=== PATIENT | female | born 1980 | race African-American/Black ===

== ENCOUNTER 2017-10-13 10:50 | Emergency (ER) | payer MEDICAID, OTHER ==
[2017-10-13] MEDS ORDERED: NAPROXEN 250 MG TABLET PO ONE (11:25)
[2017-10-13] MEDS ORDERED: HYDROCODONE/ACETAMINOPHEN 5-325 MG TABLET PO ONE (11:25)
--- NOTE | 2017-10-13 11:25 | ER Document Report ---
ED Headache - General Chief Complaint: Headache Stated Complaint: HEADACHE Time Seen by Provider: 10/13/17 11:22 Mode of Arrival: Ambulatory Information source: Patient, [facility] Records Notes: This 36-year-old female patient has history of migraines with hemiaplasia, hypertension, hyperlipidemia, coronary artery disease possibly, insulin- dependent diabetes. She reports 2 day history of severe headache with vomiting. She states her blood sugars have been okay. TRAVEL OUTSIDE OF THE [place] IN LAST 30 DAYS: No - Related Data Allergies/Adverse Reactions: No Known Allergies Allergy (Verified 10/13/17 10:52) Past Medical History - General Information source: Patient, [facility] Records - Social History Smoking Status: Never Smoker Cigarette use (# per day): No Chew tobacco use (# tins/day): No Smoking Education Provided: No Frequency of alcohol use: None Drug Abuse: None Lives with: Family Family History: Reviewed & Not Pertinent, Other - Mother had migraines Patient has suicidal ideation: No Patient has homicidal ideation: No - Past Medical History Cardiac Medical History: Reports: Hx Coronary Artery Disease, Hx Hypercholesterolemia, Hx Hypertension Pulmonary Medical History: Reports: Hx Asthma Neurological Medical History: Reports: Hx Cerebrovascular Accident Endocrine Medical History: Reports: Hx Diabetes Mellitus Type 1 Renal/ Medical History: Reports: None GI Medical History: Reports: None Musculoskeltal Medical History: Reports None Skin Medical History: Reports Hx Eczema Psychiatric Medical History: Reports: None Past Surgical History: Reports: Hx Oral Surgery - Immunizations Immunizations up to date: Yes Hx Diphtheria, Pertussis, Tetanus Vaccination: Yes - 2010 Hx Pneumococcal Vaccination: 10/12/00 Review of Systems - Review of Systems Constitutional: No symptoms reported EENT: No symptoms reported Cardiovascular: No symptoms reported Respiratory: No symptoms reported Gastrointestinal: See HPI, Vomiting - Vomiting related to the headache Genitourinary: No symptoms reported Female Genitourinary: No symptoms reported Musculoskeletal: No symptoms reported Skin: Other - Does have some eczema Hematologic/Lymphatic: No symptoms reported Neurological/Psychological: Headaches Physical Exam - Vital signs Vitals: Temp Pulse Resp BP Pulse Ox 98.6 F 106 H 16 143/93 H 98 10/13/17 10:56 10/13/17 10:56 10/13/17 10:56 10/13/17 10:56 10/13/17 10:56 Interpretation: Normal - HEENT Head: Normocephalic, Atraumatic, Tenderness - Some tenderness to palpate the frontal and temporal scalp Eyes: Normal Pupils: PERRL Neck: Supple, Other - There is minimal tenderness to palpate the posterior cervical muscles - Respiratory Respiratory status: No respiratory distress Breath sounds: Normal - Cardiovascular Rhythm: Regular Heart sounds: Normal auscultation Murmur: No - Abdominal Inspection: Normal - Back Back: Normal - Extremities General upper extremity: Normal inspection General lower extremity: Normal inspection - Neurological Neuro grossly intact: Yes - Psychological Associated symptoms: Normal affect, Normal mood Course - Re-evaluation Re-evalutation: 10/13/17 12:37 Patient is much more comfortable now reports her headache has eased off. She will be given a prescription for Compazine and instructions about taking Benadryl, Compazine, and 2 Aleve with large glass of water and perhaps some caffeine next time she gets a headache like this. - Vital Signs Vital signs: Temp Pulse Resp BP Pulse Ox 98.6 F 106 H 16 143/93 H 98 10/13/17 10:56 10/13/17 10:56 10/13/17 10:56 10/13/17 10:56 10/13/17 10:56 Discharge - Discharge Clinical Impression: Migraine headache Qualifiers: Migraine type: unspecified Status migrainosus presence: with status migrainosus Intractability: not intractable Qualified Code(s): G43.901 - Migraine, unspecified, not intractable, with status migrainosus Condition: Stable Disposition: HOME, SELF-CARE Additional Instructions: Migraine Headache: The physician feels that your symptoms are due to a migraine attack. Migraines are caused by changes in the blood vessels of the head. Arteries go into spasm, often causing warning symptoms that a headache may begin soon. As the spasm goes away, the vessels dilate and throb, causing the pounding pain of a migraine headache. Migraines often cause nausea and vomiting. The treatment of headaches varies with severity and cause of pain. Not all headaches need pain shots -- in fact, there is evidence that using narcotics for headaches may make them worse in the long run. The physician will determine the therapy that's in your best interest for this particular headache. Medications are available that may prevent migraines, or stop them as they first occur. If one medication is not helpful, try another. If migraines are frequent, be patient -- follow the doctor's recommendations. Call the physician if you are worsening, or if new symptoms arise. //////////////////////////////////////////////////////////////////////////////// //////////////////////////////////////////////////////////// Drink plenty of fluids today and get plenty of rest. Take the Compazine as prescribed if needed for headache along with 1 or 2 Benadryl tablets, 2 Aleve tablets and some caffeine perhaps from a cup of coffee or soda or tea to treat the headache if it returns. Follow-up with local medical doctor if not improving. RETURN TO THE EMERGENCY ROOM IF ANY NEW OR WORSENING SYMPTOMS. Prescriptions: Prochlorperazine Maleate [Compazine 10 mg Tablet] 10 mg PO ASDIR PRN #10 tablet PRN Reason:
[2017-10-13 13:06] VITALS: BP 136/87
== END 2017-10-13 13:09 | disposition home or self-care (01) ==
LOC: ER 10:50
DX: G43.901 Migraine, unspecified, not intractable, with status migrainosus (principal); I10 Essential (primary) hypertension; I25.10 Atherosclerotic heart disease of native coronary artery without angina pectoris; E78.00 Pure hypercholesterolemia, unspecified; E10.9 Type 1 diabetes mellitus without complications; Z86.73 Personal history of transient ischemic attack (TIA), and cerebral infarction without residual deficits; Z79.4 Long term (current) use of insulin
CPT/HCPCS: 99283; J3490

== ENCOUNTER 2017-10-15 13:56 | Emergency (ER) | payer MEDICAID ==
--- NOTE | 2017-10-15 14:26 | ER Document Report ---
ED Medical Screen (RME) - General Chief Complaint: Headache >24 hrs old Stated Complaint: HEADACHE Time Seen by Provider: 10/15/17 14:21 TRAVEL OUTSIDE OF THE [place] IN LAST 30 DAYS: No - HPI Patient complains to provider of: Headache 10/10 Notes: 10/15/17 14:24 Fortunately young woman with history of stroke presents with 10/10 headache. She had a migraine that started 2 days ago was seen in our emergency department. Was given medications here and released improved. Returns again with headache throbbing in nature nausea vomiting no diarrhea no head trauma. No focal motor defects. - Related Data Allergies/Adverse Reactions: No Known Allergies Allergy (Verified 10/15/17 13:59) Past Medical History - Past Medical History Cardiac Medical History: Reports: Hx Coronary Artery Disease, Hx Hypercholesterolemia, Hx Hypertension Pulmonary Medical History: Reports: Hx Asthma Neurological Medical History: Reports: Hx Cerebrovascular Accident Endocrine Medical History: Reports: Hx Diabetes Mellitus Type 1 Renal/ Medical History: Denies: Hx Peritoneal Dialysis Skin Medical History: Reports Hx Eczema Past Surgical History: Reports: Hx Oral Surgery. Denies: Hx Hysterectomy - Immunizations Immunizations up to date: Yes Hx Diphtheria, Pertussis, Tetanus Vaccination: Yes - 2010 Review of Systems - Review of Systems Gastrointestinal: Nausea, Vomiting Neurological/Psychological: Headaches Physical Exam - Vital signs Vitals: Temp Pulse Resp BP Pulse Ox 99.1 F 106 H 14 156/99 H 100 10/15/17 13:58 10/15/17 13:58 10/15/17 13:58 10/15/17 13:58 10/15/17 13:58 Course - Re-evaluation Re-evalutation: 10/15/17 14:26 Patient with history of stroke presents with 10/10 headache, nausea vomiting. - Vital Signs Vital signs: Temp Pulse Resp BP Pulse Ox 99.1 F 106 H 14 156/99 H 100 10/15/17 13:58 10/15/17 13:58 10/15/17 13:58 10/15/17 13:58 10/15/17 13:58
[2017-10-15] MEDS ORDERED: NORMAL SALINE 1000 ML 1,000 ML IV ONE ×2 (14:29→16:59)
[2017-10-15] MEDS ORDERED: METOCLOPRAMIDE HCL INJ/PF 10 MG/2 ML SDV IV ONE (15:27)
[2017-10-15] MEDS ORDERED: DIPHENHYDRAMINE HCL 50 MG/ML VIAL IV ONE (15:27)
[2017-10-15 15:43] LABS: INTERNATIONAL RATION (INR) 0.89; PROTHROMBIN TIME 12.7 SEC (11.4-15.4)
[2017-10-15 15:44] LABS: PARTIAL THROMBOPLASTIN TIME 33.2 SEC (23.5-35.8)
[2017-10-15 15:46] LABS: ABSOLUTE LYMPHOCYTES (AUTO) 1.8 10^3/uL (0.5-4.7); ABSOLUTE MONOCYTES (AUTO) 0.4 10^3/uL (0.1-1.4); ABSOLUTE NEUT (AUTO) 9.7 10^3/uL (1.7-8.2); BASOPHILS % (AUTO) 0.4 % (0-2); EOSINOPHILS % (AUTO) 0.2 % (0-6); HEMATOCRIT 43.9 % (36.0-47.0); HEMOGLOBIN 14.6 g/dL (12.0-15.5); LYMPHOCYTES % (AUTO) 14.9 % (13-45); MEAN CORPUSCULAR HEMOGLOBIN 28.7 pg (27.0-33.4); MEAN CORPUSCULAR HGB CONC 33.2 g/dL (32.0-36.0); MEAN CORPUSCULAR VOLUME 87 fl (80-97); MONOCYTES % (AUTO) 3.1 % (3-13); PLATELET COUNT 412 10^3/uL (150-450); RED BLOOD COUNT 5.08 10^6/uL (3.72-5.28); RED CELL DISTRIBUTION WIDTH 13.4 % (11.5-14.0); SEGMENTED NEUTROPHILS % (AUTO) 81.4 % (42-78); TOTAL CELLS COUNTED % (AUTO) 100 %; WHITE BLOOD COUNT 11.9 10^3/uL (4.0-10.5)
--- NOTE | 2017-10-15 16:02 | RADIOLOGY REPORT (SQ) ---
EXAM DESCRIPTION: CT HEAD WITHOUT COMPLETED DATE/TIME: 10/15/2017 3:44 pm REASON FOR STUDY: ARZOLA COMPARISON: Prior studies from 2016 and 2014. Most recent prior is dated 08/31/2016. TECHNIQUE: Axial images acquired through the brain without intravenous contrast. Images reviewed wi th bone, brain and subdural windows. Images stored on PACS. All CT scanners at this facility use dose modulation, iterative reconstruction, and/or weight based d osing when appropriate to reduce radiation dose to as low as reasonably achievable (ALARA). [facility]: Dose Right [facility]: CareDose [facility]: Dose Right [facility]: Teradose 4D [facility]: Smart FUZE Fit For A Kid! RADIATION DOSE: CT Rad equipment meets quality standard of care and radiation dose reduction techniq ues were employed. CTDIvol: 67.0 mGy. DLP: 1316 mGy-cm. mGy. LIMITATIONS: None. FINDINGS: VENTRICLES: Normal size and contour. CEREBRUM: Stable patchy areas of periventricular low density. Nonprogressive over time. No developin g mass or hemorrhage or shift or hydrocephalus. CEREBELLUM: No masses. No hemorrhage. No alteration of density. No evidence for acute infarction. EXTRAAXIAL SPACES: No fluid collections. No masses. ORBITS AND GLOBE: No intra- or extraconal masses. Normal contour of globe without masses. CALVARIUM: No fracture. PARANASAL SINUSES: No fluid or mucosal thickening. SOFT TISSUES: No mass or hematoma. OTHER: No other significant finding. IMPRESSION: 1. Nonprogressive white matter changes, chronic. No acute or suspicious abnormality. S table appearance of the brain. EVIDENCE OF ACUTE STROKE: NO. COMMENT: Quality ID # [id number]: Final reports with documentation of one or more dose reduction techniques (e.g., Automated exposure control, adjustment of the mA and/or kV according to patient size, use of iterative reconstruction technique) TECHNICAL DOCUMENTATION: JOB ID: [id number] [employer]- All Rights Reserved
--- NOTE | 2017-10-15 16:02 | RADIOLOGY REPORT (SQ) ---
EXAM DESCRIPTION: CHEST SINGLE VIEW COMPLETED DATE/TIME: 10/15/2017 3:48 pm REASON FOR STUDY: ARZOLA, hx stroke COMPARISON: 09/08/2015 EXAM PARAMETERS: NUMBER OF VIEWS: One view. TECHNIQUE: Single frontal radiographic view of the chest acquired. RADIATION DOSE: NA LIMITATIONS: None. FINDINGS: LUNGS AND PLEURA: No opacities, masses or pneumothorax. No pleural effusion. MEDIASTINUM AND HILAR STRUCTURES: No masses. Contour normal. HEART AND VASCULAR STRUCTURES: Heart normal in size. Normal vasculature. BONES: No acute findings. HARDWARE: None in the chest. OTHER: No other significant finding. IMPRESSION: NO ACUTE RADIOGRAPHIC FINDING IN THE CHEST. TECHNICAL DOCUMENTATION: JOB ID: [id number] [employer]- All Rights Reserved
--- NOTE | 2017-10-15 16:49 | ER Document Report ---
ED Headache - General Mode of Arrival: Ambulatory Information source: Patient TRAVEL OUTSIDE OF THE [place] IN LAST 30 DAYS: No - HPI Patient complains to provider of: Headache Patient reports: Occasional migraines, Prior CVA Onset: This afternoon Onset was: Gradual Timing: Still present Quality of pain: Sharp, Throbbing Pain Level: 5 Associated symptoms: Nausea/vomiting. denies: Confusion, Double/blurred vision , Fever, Lightheaded, Neck pain, Stiff neck, Trouble walking Exacerbated by: denies: Light, Noise Similar symptoms previously: Yes Recently seen / treated by doctor: Yes <MADELEINE WHITE - Last Filed: 10/15/17 19:24> <GUSTAVO BARRERA - Last Filed: 10/15/17 20:35> - General Chief Complaint: Headache >24 hrs old Stated Complaint: HEADACHE Time Seen by Provider: 10/15/17 14:21 Notes: Patient complains of right-sided headache pain that started 2 days ago. Patient was seen here for this at that time and received pain medication. Patient states that headache pain resolved and then returned this afternoon. Patient does report nausea with vomiting 4 episodes today. Patient denies any fever or head injury. Patient's mother is concerned that patient has a history of stroke in the past and that with her previous strokes 4 she always had headache pain. Mother states that patient has been followed by multiple providers at [facility], [facility], [facility] as well as [facility]. Patient states that some people say she had strokes, mother states that other providers that she did not have strokes, patient's mother states that patient is currently being treated for MS, but she does not believe that patient has this. Mother states that patient's had chronic body pains as well as weakness due to her strokes in the past. 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 Lives with: Family Family History: Reviewed & Not Pertinent, Other - Mother had migraines Patient has suicidal ideation: No Patient has homicidal ideation: No - Past Medical History Cardiac Medical History: Reports: Hx Coronary Artery Disease, Hx Hypercholesterolemia, Hx Hypertension Pulmonary Medical History: Reports: Hx Asthma Neurological Medical History: Reports: Hx Cerebrovascular Accident, Hx Migraine Endocrine Medical History: Reports: Hx Diabetes Mellitus Type 1 Renal/ Medical History: Denies: Hx Peritoneal Dialysis Skin Medical History: Reports Hx Eczema Past Surgical History: Reports: Hx Oral Surgery. Denies: Hx Hysterectomy - Immunizations Immunizations up to date: Yes Hx Diphtheria, Pertussis, Tetanus Vaccination: Yes - 2010 Hx Pneumococcal Vaccination: 10/12/00 <CINDYMADELEINE Rg - Last Filed: 10/15/17 19:24> Review of Systems - Review of Systems Constitutional: No symptoms reported. denies: Fever, Recent illness EENT: No symptoms reported. denies: Blurred vision Cardiovascular: No symptoms reported. denies: Chest pain, Dizziness Respiratory: No symptoms reported Gastrointestinal: Nausea, Vomiting. denies: Abdominal pain Genitourinary: No symptoms reported Female Genitourinary: No symptoms reported Musculoskeletal: No symptoms reported. denies: Back pain, Neck pain Skin: No symptoms reported. denies: Rash Hematologic/Lymphatic: No symptoms reported Neurological/Psychological: Weakness - Chronic after having prior CVAs, Headaches. denies: Confusion, Lost consciousness <CINDY,JEREMIASJAVON - Last Filed: 10/15/17 19:24> Physical Exam - General General appearance: Alert In distress: Mild - HEENT Head: Normocephalic, Atraumatic. No: Racoon's eyes, Tenderness Eyes: Normal Conjunctiva: Normal Extraocular movements intact: Yes Eyelashes: Normal Pupils: PERRL Ears: Normal External canal: Normal Tympanic membrane: Normal Sinus: Normal Nasal: Normal Mouth/Lips: Normal Mucous membranes: Normal Pharynx: Normal. No: Erythema Neck: Normal, Supple. No: Lymphadenopathy, Meningismus - Respiratory Respiratory status: No respiratory distress Chest status: Nontender Breath sounds: Normal. No: Rales, Rhonchi, Stridor, Wheezing Chest palpation: Normal - Cardiovascular Rhythm: Regular Heart sounds: S1 appreciated, S2 appreciated Murmur: No - Abdominal Inspection: Normal - Back Back: Normal, Nontender. No: CVA tenderness - Extremities General upper extremity: Normal inspection, Normal strength General lower extremity: Normal inspection, Normal strength - Neurological Neuro grossly intact: Yes Cognition: Normal Orientation: AAOx4 Gaffney Coma Scale Eye Opening: Spontaneous Mikalea Coma Scale Verbal: Oriented Mikaela Coma Scale Motor: Obeys Commands Gaffney Coma Scale Total: 15 Speech: Normal. No: Dysarthria Cranial nerves: Normal. No: Facial palsy, Tongue deviation Cerebellar coordination: Normal, Heel-bardales, Rapid alt. movements Motor strength normal: LUE, RUE, LLE, RLE - Psychological Associated symptoms: Normal affect, Normal mood - Skin Skin Temperature: Warm Skin Moisture: Dry Skin Color: Normal <MADELEINE WHITE - Last Filed: 10/15/17 19:24> - Vital signs Vitals: Temp Pulse Resp BP Pulse Ox 99.1 F 106 H 14 156/99 H 100 10/15/17 13:58 10/15/17 13:58 10/15/17 13:58 10/15/17 13:58 10/15/17 13:58 Course - Laboratory Result Diagrams: 10/15/17 14:45 10/15/17 16:53 - Diagnostic Test Radiology reviewed: Reports reviewed <MADELEINE WHITE - Last Filed: 10/15/17 19:24> - Laboratory Result Diagrams: 10/15/17 14:45 10/15/17 16:53 <GUSTAVO BARRERA - Last Filed: 10/15/17 20:35> - Re-evaluation Re-evalutation: 10/15/17 17:[address] Dockery regarding patient presentation reviewed patient's CT report findings. Does not recommend any additional imaging given normal neurologic exam. Recommend outpatient follow-up with neurologist 10/15/17 18:05 Patient reports that headache pain is starting to improve. RN states that patient is now starting to develop a fever. Additional medications ordered. Discussed patient's hyperglycemia. Mother states that patient has not had any of her diabetic medications today. 10/15/17 18:26 Dr Dockery bedside for examination. No concern for meningitis at this time, no meningismus. Negative Kernig and Brudzinski. Agrees with plan for IV hydration as well as checking a urinalysis and flu test at this time. 10/15/17 18:30 10/15/17 19:24 Bedside report and handout given to Gustavo DREW (MADELEINE WHITE) 10/15/17 20:30 Patient alert, well-appearing, states she feels much better. She is asking for a single dose of something so she can go home and rest, she denies any significant headache, she denies any neck stiffness, she denies any current symptoms other than feeling tired. Blood glucose on the 300s, patient given hydration, she has insulin and ability to check and self treat at home, anion gap and bicarbonate are normal. Urine does not show infection, influenza negative, chest x-ray does not show pneumonia, no sore throat, soft abdomen, probably viral source of infection. No meningismus suggesting meningitis. No current symptoms suggesting meningitis. Patient states she will follow closely with her neurologist, discussed fever treatment, blood glucose treatment, headache treatment, and return precautions. Patient and mom state satisfaction and agreement. (GUSTAVO BARRERA) - Vital Signs Vital signs: Temp Pulse Resp BP Pulse Ox 100.4 F 107 H 18 128/78 H 96 10/15/17 20:13 10/15/17 20:13 10/15/17 20:13 10/15/17 20:13 10/15/17 20:13 - Laboratory Laboratory results interpreted by me: 10/15/17 10/15/17 10/15/17 14:45 16:53 18:50 WBC 11.9 H Seg Neutrophils % 81.4 H Absolute Neutrophils 9.7 H Sodium 135.7 L Glucose 343 H POC Glucose Creatine Kinase 28 L Urine Glucose (UA) >=500 H Urine Ketones 20 H 10/15/17 20:02 WBC Seg Neutrophils % Absolute Neutrophils Sodium Glucose POC Glucose 348 H Creatine Kinase Urine Glucose (UA) Urine Ketones Discharge <MADELEINE WHITE - Last Filed: 10/15/17 19:24> <GUSTAVO BARRERA - Last Filed: 10/15/17 20:35> - Discharge Clinical Impression: Hx of diabetes mellitus Headache Qualifiers: Headache type: unspecified Headache chronicity pattern: episodic headache Intractability: not intractable Qualified Code(s): R51 - Headache Fever Qualifiers: Fever type: unspecified Qualified Code(s): R50.9 - Fever, unspecified Instructions: Acetaminophen, Fever ([facility]), Headache ([facility]), Hyperglycemia ([facility]), Toradol Injection ([facility]), Viral Syndrome ([facility]) Additional Instructions: Return immediately for any new or worsening symptoms Followup with your primary care provider, call tomorrow to make a followup appointment Follow-up with your neurologist for further evaluation, call tomorrow for an appointment Stay well-hydrated Take your diabetic medications as prescribed Prescriptions: Butalb/Acetaminophen/Caffeine [Fioricet (50-325-40 mg) Tablet] 1 - 2 tab PO Q4H PRN #12 each PRN Reason: Naproxen [Naprosyn 250 Nmg Tablet] 1 tab PO BID #14 tablet Forms: Return to Work Referrals: KENNEY PEREIRA MD [Primary Care Provider] - Follow up tomorrow
[2017-10-15] MEDS ORDERED: DEXAMETHASONE SOD PHOS INJ 10 MG/1 ML VIAL IV ONE (16:56)
[2017-10-15] MEDS ORDERED: KETOROLAC TROMETHAMINE INJ/PF 30 MG/1 ML SDV IV ONE (16:56)
[2017-10-15 17:19] LABS: ALANINE AMINOTRANSFERASE 23 U/L (9-52); ALBUMIN 4.3 g/dL (3.5-5.0); ALKALINE PHOSPHATASE 116 U/L (38-126); ANION GAP 12 (5-19); ASPARTATE AMINO TRANSFERASE 19 U/L (14-36); BILIRUBIN,DIRECT 0.3 mg/dL (0.0-0.4); BILIRUBIN,TOTAL 0.4 mg/dL (0.2-1.3); BLOOD UREA NITROGEN 7 mg/dL (7-20); CALCIUM 10.1 mg/dL (8.4-10.2); CARBON DIOXIDE 25 mmol/L (22-30); CHLORIDE 99 mmol/L (98-107); CREATINE KINASE 28 U/L (30-135); GLUCOSE 343 mg/dL (75-110); POTASSIUM 4.3 mmol/L (3.6-5.0); SODIUM 135.7 mmol/L (137-145); TOTAL PROTEIN 7.1 g/dL (6.3-8.2)
[2017-10-15] MEDS ORDERED: INSULIN REG, HUMAN 100 UNIT/ML 3 ML VIAL (PYX) SUBCUT ONE (17:25)
[2017-10-15 17:35] LABS: CREATINE KINASE MB < 0.22 ng/mL (<4.55); TROPONIN I < 0.012 ng/mL
[2017-10-15] MEDS ORDERED: ACETAMINOPHEN 325 MG TABLET PO ONE (18:00)
[2017-10-15 19:22] LABS: A TYPE INFLUENZA AG NEGATIVE (NEGATIVE); B INFLUENZA AG NEGATIVE (NEGATIVE)
[2017-10-15 19:25] LABS: APPEARANCE,URINE SLIGHTLY-CLOUDY; BILIRUBIN,URINE NEGATIVE (NEGATIVE); COLOR,URINE YELLOW; GLUCOSE, URINE >=500 mg/dL (NEGATIVE); KETONES,URINE 20 mg/dL (NEGATIVE); LEUKOCYTE ESTERASE,URINE NEGATIVE (NEGATIVE); NITRITE,URINE NEGATIVE (NEGATIVE); PROTEIN,URINE NEGATIVE (NEGATIVE); URINE SPECIFIC GRAVITY 1.039; UROBILINOGEN,URINE NEGATIVE mg/dL (<2.0)
[2017-10-15] MEDS ORDERED: OXYCODONE HCL IR 5 MG TABLET PO ONE (20:31)
[2017-10-15] MEDS ORDERED: HYDROCODONE/ACETAMINOPHEN 5-325 MG (6 TAB/ER DISP) PO PRN (20:31)
[2017-10-15 20:53] VITALS: BP 122/69
--- NOTE | 2017-10-16 09:22 | EKG REPORT ---
SEVERITY:- BORDERLINE ECG - SINUS TACHYCARDIA BORDERLINE T ABNORMALITIES, INFERIOR LEADS : Confirmed by: Geoff Saba 16-Oct-2017 09:22:23
== END 2017-10-15 20:53 | disposition home or self-care (01) ==
LOC: ER 13:56
DX: R51 Headache (principal); E10.65 Type 1 diabetes mellitus with hyperglycemia; R50.9 Fever, unspecified; R11.2 Nausea with vomiting, unspecified; I25.10 Atherosclerotic heart disease of native coronary artery without angina pectoris; I10 Essential (primary) hypertension; I69.398 Other sequelae of cerebral infarction; R53.1 Weakness; G89.29 Other chronic pain; F17.200 Nicotine dependence, unspecified, uncomplicated; R53.83 Other fatigue
CPT/HCPCS: 93005; 99284; 96361; 96374; 96375; 36415; 82553; 82962; 82550; 85025; 85610; 85730; 80053; 81001; 84484; 87804; 71045; 70450; 93010; J3490 ×2; J1200; J1885; J2765; J1815; J7030; J1100

== ENCOUNTER → 2018-01-19 | Outpatient (CLI) | payer MEDICAID ==
[2018-01-20 07:43] LABS: HEPATITIS A AB IGM Negative (Negative); HEPATITIS B CORE AB IGM Negative (Negative); HEPATITS B SURFACE ANTIGEN Negative (Negative)
[2018-01-20 08:17] LABS: HEPATITIS C VIRUS ANTIBODY <0.1 s/co ratio (0.0-0.9); VARICELLA ZOSTER IGG AB >4000 index (Immune >165)
== END ==
LOC: OD 10:50
PROVIDERS: ATTEND Psychiatry & Neurology Neurology
DX: G35 Multiple sclerosis (principal); Z13.9 Encounter for screening, unspecified; Z79.899 Other long term (current) drug therapy
CPT/HCPCS: 36415; 80074; 86480; 86787

== ENCOUNTER 2018-02-04 21:46 | Emergency (ER) | payer MEDICAID ==
--- NOTE | 2018-02-04 22:10 | ER Document Report ---
ED Medical Screen (RME) - General Chief Complaint: Weakness Stated Complaint: WEAKNESS Time Seen by Provider: 02/04/18 22:02 Notes: Patient is a 37 year old female that comes to the ED for chief complaint of weakness in her left arm and leg. She also reports some numbness. She states that she actually fell in a store earlier because of the weakness. Symptoms started at 2 PM, 8 hours ago, patient states that she both has a diagnosis of multiple sclerosis and has had 4 strokes, follows with [facility]. Used to be on a blood thinner, not any longer, not currently being treated for multiple sclerosis because of insurance difficulty, also has type 1 diabetes. TRAVEL OUTSIDE OF THE [place] IN LAST 30 DAYS: No - Related Data Allergies/Adverse Reactions: No Known Allergies Allergy (Verified 10/15/17 13:59) Past Medical History - Past Medical History Cardiac Medical History: Reports: Hx Coronary Artery Disease, Hx Hypercholesterolemia, Hx Hypertension Pulmonary Medical History: Reports: Hx Asthma Neurological Medical History: Reports: Hx Cerebrovascular Accident, Hx Migraine Endocrine Medical History: Reports: Hx Diabetes Mellitus Type 1 Renal/ Medical History: Denies: Hx Peritoneal Dialysis Skin Medical History: Reports Hx Eczema Past Surgical History: Reports: Hx Oral Surgery. 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
[2018-02-04 22:59] LABS: ABSOLUTE EOSINOPHILS # (AUTO) 0.1 10^3/uL (0.0-0.6); ABSOLUTE LYMPHOCYTES (AUTO) 3.1 10^3/uL (0.5-4.7); ABSOLUTE MONOCYTES (AUTO) 0.6 10^3/uL (0.1-1.4); ABSOLUTE NEUT (AUTO) 8.2 10^3/uL (1.7-8.2); BASOPHILS % (AUTO) 0.2 % (0-2); EOSINOPHILS % (AUTO) 0.8 % (0-6); HEMATOCRIT 39.9 % (36.0-47.0); HEMOGLOBIN 13.3 g/dL (12.0-15.5); LYMPHOCYTES % (AUTO) 25.8 % (13-45); MEAN CORPUSCULAR HEMOGLOBIN 28.4 pg (27.0-33.4); MEAN CORPUSCULAR HGB CONC 33.3 g/dL (32.0-36.0); MEAN CORPUSCULAR VOLUME 85 fl (80-97); MONOCYTES % (AUTO) 5.3 % (3-13); PLATELET COUNT 346 10^3/uL (150-450); RED BLOOD COUNT 4.67 10^6/uL (3.72-5.28); RED CELL DISTRIBUTION WIDTH 13.7 % (11.5-14.0); SEGMENTED NEUTROPHILS % (AUTO) 67.9 % (42-78); TOTAL CELLS COUNTED % (AUTO) 100 %
[2018-02-04 23:07] LABS: INTERNATIONAL RATION (INR) 0.87; PROTHROMBIN TIME 12.3 SEC (11.4-15.4)
[2018-02-04 23:08] LABS: PARTIAL THROMBOPLASTIN TIME 34.9 SEC (23.5-35.8)
[2018-02-04 23:18] LABS: ALANINE AMINOTRANSFERASE 28 U/L (9-52); ALBUMIN 4.4 g/dL (3.5-5.0); ALKALINE PHOSPHATASE 88 U/L (38-126); ANION GAP 14 (5-19); ASPARTATE AMINO TRANSFERASE 23 U/L (14-36); BILIRUBIN,DIRECT 0.3 mg/dL (0.0-0.4); BILIRUBIN,TOTAL 0.3 mg/dL (0.2-1.3); BLOOD UREA NITROGEN 5 mg/dL (7-20); CALCIUM 10.2 mg/dL (8.4-10.2); CARBON DIOXIDE 24 mmol/L (22-30); CHLORIDE 94 mmol/L (98-107); CREATINE KINASE 24 U/L (30-135); POTASSIUM 4.2 mmol/L (3.6-5.0); SODIUM 132.2 mmol/L (137-145); TOTAL PROTEIN 7.4 g/dL (6.3-8.2)
[2018-02-04 23:26] LABS: GLUCOSE 409 mg/dL (75-110)
[2018-02-04 23:34] LABS: CREATINE KINASE MB < 0.22 ng/mL (<4.55); TROPONIN I < 0.012 ng/mL
[2018-02-05] MEDS ORDERED: NORMAL SALINE 1000 ML 1,000 ML IV ONE (00:24)
--- NOTE | 2018-02-05 00:25 | RADIOLOGY REPORT (SQ) ---
EXAM DESCRIPTION: CT HEAD WITHOUT CLINICAL HISTORY: 37 years Female, left arm and leg weakness; hx stroke MS COMPARISON: Reports only: MRI, 12/06/2014. CT, 09/08/2015, January 03, 2016, 08/31/2016. TECHNIQUE: No contrast. Coronal and sagittal reformat. This exam was performed according to our departmental dose-optimization program, which includes automated exposure control, adjustment of the mA and/or kV according to patient size and/or use of iterative reconstruction technique. FINDINGS: Mild diminished white matter density including focal 0.6 cm diminished density in the left periventricular white matter, image 29 of series 2 consistent with prior exam reports. No hemorrhage. No mass effect and no midline shift. Extra-axial structures appear otherwise grossly intact. Impression: No acute findings. Chronic white matter disease pattern.
--- NOTE | 2018-02-05 00:27 | RADIOLOGY REPORT (SQ) ---
EXAM DESCRIPTION: CHEST SINGLE VIEW CLINICAL HISTORY: 37 years Female, left arm and leg weakness; hx stroke COMPARISON: 1.4.18 NUMBER OF VIEWS/TECHNIQUE: 1/AP FINDINGS: Adequate lung volume, clear parenchyma, normal cardiac silhouette, and intact bony thorax. IMPRESSION: No acute cardiopulmonary findings.
--- NOTE | 2018-02-05 00:51 | ER Document Report ---
ED Neuro Symptoms/Deficit - General Mode of Arrival: Ambulatory Information source: Patient TRAVEL OUTSIDE OF THE [place] IN LAST 30 DAYS: No <PARMINDER PINTO - Last Filed: 02/05/18 01:52> <AMIRAH KU - Last Filed: 02/05/18 02:45> - General Chief Complaint: Weakness Stated Complaint: WEAKNESS Time Seen by Provider: 02/04/18 22:02 Notes: Patient is a 37-year-old female with a diagnosis of multiple sclerosis in 2017 who presents to the emergency department today with left-sided weakness beginning a day and a half ago. Patient states her weakness "comes and goes". Patient states that her left leg began to "buckle" when walking. Patient states she was at a store buying soda and when walking to the register she fell secondary to left-sided weakness. Patient states her left arm has also began to feel weak at times. Patient states the weakness starts "in her toes and goes up to her arm". Patient states she has been off of her multiple sclerosis medications for 3 weeks because she was "going to start infusions" however " [facility] has not yet started these and her next appointment is not until February". 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 (PARMINDER PINTO) - Related Data Allergies/Adverse Reactions: No Known Allergies Allergy (Verified 10/15/17 13:59) Past Medical History - General Information source: Patient - Social History Smoking Status: Never Smoker Cigarette use (# per day): No Frequency of alcohol use: None Drug Abuse: None Lives with: Family Family History: Reviewed & Not Pertinent, Other - Mother had migraines - Past Medical History Cardiac Medical History: Reports: Hx Coronary Artery Disease, Hx Hypercholesterolemia, Hx Hypertension Pulmonary Medical History: Reports: Hx Asthma Neurological Medical History: Reports: Hx Cerebrovascular Accident, Hx Migraine , Other - Hx of MS Endocrine Medical History: Reports: Hx Diabetes Mellitus Type 1 Skin Medical History: Reports Hx Eczema Past Surgical History: Reports: Hx Oral Surgery - Immunizations Immunizations up to date: Yes Hx Diphtheria, Pertussis, Tetanus Vaccination: Yes - 2010 Hx Pneumococcal Vaccination: 10/12/00 <PARMINDER PINTO - Last Filed: 02/05/18 01:52> Review of Systems - Review of Systems Constitutional: No symptoms reported EENT: No symptoms reported Cardiovascular: No symptoms reported Respiratory: No symptoms reported Gastrointestinal: No symptoms reported Genitourinary: No symptoms reported Female Genitourinary: No symptoms reported Musculoskeletal: No symptoms reported Skin: No symptoms reported Hematologic/Lymphatic: No symptoms reported Neurological/Psychological: See HPI, Weakness - Left arm/leg -: Yes All other systems reviewed and negative <PARMINDER PINTO - Last Filed: 02/05/18 01:52> Physical Exam - Vital signs Interpretation: Normal - General General appearance: Appears well, Alert - HEENT Head: Normocephalic, Atraumatic Eyes: Normal Pupils: PERRL - Respiratory Respiratory status: No respiratory distress Chest status: Nontender Breath sounds: Normal Chest palpation: Normal - Cardiovascular Rhythm: Regular Heart sounds: Normal auscultation Murmur: No - Abdominal Inspection: Normal Distension: No distension Bowel sounds: Normal Tenderness: Nontender Organomegaly: No organomegaly - Back Back: Normal, Nontender - Extremities General upper extremity: Normal inspection, Nontender, Normal color, Normal ROM , Normal temperature General lower extremity: Normal inspection, Nontender, Normal color, Normal ROM , Normal temperature, Normal weight bearing. 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 No: Pronator drift Sensory: Normal - Psychological Associated symptoms: Normal affect, Normal mood - Skin Skin Temperature: Warm Skin Moisture: Dry Skin Color: Normal <AMIRAH KU - Last Filed: 02/05/18 02:45> - Vital signs Vitals: Temp Pulse Resp BP Pulse Ox 98.0 F 119 H 20 145/96 H 98 02/04/18 22:12 02/04/18 22:12 02/04/18 22:12 02/04/18 22:12 02/04/18 22:12 Course - Laboratory Result Diagrams: 02/04/18 22:41 02/04/18 22:41 <PARMINDER PINTO - Last Filed: 02/05/18 01:52> - Laboratory Result Diagrams: 02/04/18 22:41 02/04/18 22:41 <AMIRAH KU - Last Filed: 02/05/18 02:45> - Re-evaluation Re-evalutation: 02/05/18 02:42 Patient with elevated blood sugar. No evidence for DKA. Patient has had waxing and waning symptoms. No acute findings on CT. She has been discussed with neurology at [facility],Dr. Jamilah Almanzar, who does not recommend an MRI at this time. He is going to message her immune own neurologist to get her in sooner than March 01. Would not start steroids or any other medications at this plan. Patient would prefer not to be transferred this evening. She is to expect a call from [facility] and call for follow-up if she does not hear from them in the next few days. Understands and agrees with plan. Neurovascularly intact at the time of discharge with a repeat blood sugar that is decreased. Stable for discharge. (AMIRAH KU) - Vital Signs Vital signs: Temp Pulse Resp BP Pulse Ox 98.9 F 119 H 17 136/93 H 99 02/05/18 00:22 02/04/18 22:12 02/05/18 02:01 02/05/18 02:00 02/05/18 02:01 - Laboratory Laboratory results interpreted by me: 02/04/18 02/04/18 02/05/18 22:41 22:41 01:59 WBC 12.0 H Sodium 132.2 L Chloride 94 L BUN 5 L Creatinine 0.48 L Glucose 409 H* POC Glucose 306 H Creatine Kinase 24 L Discharge <PARMINDER PINTO - Last Filed: 02/05/18 01:52> <AMIRAH KU - Last Filed: 02/05/18 02:45> - Discharge Clinical Impression: Exacerbation of multiple sclerosis, Hyperglycemia due to type 1 diabetes mellitus Condition: Stable Disposition: HOME, SELF-CARE Instructions: Hyperglycemia ([facility]) Additional Instructions: Please follow-up with your neurologist at [facility]. I have spoken to the service and they should be contacting you for an earlier appointment later today. Please return if you have any worsening or concerning symptoms. Referrals: JERSON VILLATORO, [Primary Care Provider] - Follow up in 3-5 days Scribe Attestation: 02/05/18 02:45 I personally performed the services described in the documentation, reviewed and edited the documentation which was dictated to the scribe in my presence, and it accurately records my words and actions. (AMIRAH KU) Scribe Documentation - Scribe Written by Scribe:: Jose Antonio Valencia, 02/05/2018 0206 acting as scribe for :: Lina <PARMINDER PINTO - Last Filed: 02/05/18 01:52>
[2018-02-05 03:03] VITALS: BP 155/99
--- NOTE | 2018-02-05 07:51 | EKG REPORT ---
SEVERITY:- BORDERLINE ECG - SINUS TACHYCARDIA BORDERLINE T ABNORMALITIES, INFERIOR LEADS : Confirmed by: Shelton Tomas MD 05-Feb-2018 07:50:29
== END 2018-02-05 03:05 | disposition home or self-care (01) ==
LOC: ER 21:46
DX: R53.1 Weakness (principal); G35 Multiple sclerosis; W18.30XA Fall on same level, unspecified, initial encounter; Y92.512 Supermarket, store or market as the place of occurrence of the external cause; Z86.73 Personal history of transient ischemic attack (TIA), and cerebral infarction without residual deficits; I25.10 Atherosclerotic heart disease of native coronary artery without angina pectoris; I10 Essential (primary) hypertension
CPT/HCPCS: 93005; 99285; 96360; 36415; 82553; 82962; 82550; 83735; 85025; 85610; 85730; 80053; 84484; 71045; 70450; 93010; J7030

== ENCOUNTER 2019-04-12 13:17 | Emergency (ER) | payer MEDICAID, MEDICARE ==
[2019-04-12] MEDS ORDERED: TETRACAINE HCL 0.5% OPH SOLN 4 ML OS ONE (14:10)
--- NOTE | 2019-04-12 14:11 | ER Document Report ---
HPI - HPI Time Seen by Provider: 04/12/19 13:49 Pain Level: 2 Context: Patient is a 38-year-old female who presents the emergency department with left eye burning and light sensitivity. She states about 4 days ago she noticed that she had crust around her eyes. Denies any injury. She does have false eyelashes, but states that the burning started before she put her false eyelashes in. - ROS Notes: REVIEW OF SYSTEMS: CONSTITUTIONAL : Denies recent illness. Denies recent unintentional weight loss. Denies fever, chills, or sweats. EENT: See HPI denies ear, throat, or mouth pain, discharge, or symptoms. Denies nasal or sinus congestion. CARDIOVASCULAR: Denies chest pain. RESPIRATORY: Denies shortness of breath, cough, congestion, difficulty breathing, or wheezing. GASTROINTESTINAL: Denies nausea, vomiting, and diarrhea. Denies abdominal pain. Denies constipation. GENITOURINARY: Denies difficulty urinating, burning, blood in urine, urgency or frequency. MUSCULOSKELETAL: Denies neck and back pain. Denies joint pain or swelling. SKIN: Denies rash, itchiness, or lesions HEMATOLOGIC : Denies easy bruising or bleeding. LYMPHATIC: Denies swollen, painful, enlarged glands. NEUROLOGICAL: Denies no numbness or tingling denies weakness. Denies headache. Denies altered mental status. Denies alteration in speech. PSYCHIATRIC: Denies stress, anxiety, alteration in sleep patterns, or depression. All other systems reviewed and negative. - REPRODUCTIVE Reproductive: DENIES: : Past Medical History - Social History Smoking Status: Unknown if Ever Smoked Family History: Reviewed & Not Pertinent, Other - Mother had migraines - Past Medical History Cardiac Medical History: Reports: Hx Coronary Artery Disease, Hx Hypercholesterolemia, Hx Hypertension Pulmonary Medical History: Reports: Hx Asthma Neurological Medical History: Reports: Hx Cerebrovascular Accident, Hx Migraine Endocrine Medical History: Reports: Hx Diabetes Mellitus Type 1 Renal/ Medical History: Denies: Hx Peritoneal Dialysis Skin Medical History: Reports Hx Eczema Past Surgical History: Reports: Hx Oral Surgery. Denies: Hx Hysterectomy - Immunizations Immunizations up to date: Yes Hx Diphtheria, Pertussis, Tetanus Vaccination: Yes - 2010 Hx Pneumococcal Vaccination: 10/12/00 Vertical Provider Document - CONSTITUTIONAL Notes: PHYSICAL EXAMINATION: GENERAL: Appears well, healthy, well-nourished, no acute distress. HEAD: Normocephalic, atraumatic. EYES: PERRL, corneal abrasion noted to 3:00 hour of cornea, all extraocular mov ements intact, sclera nonicteric ENT: Moist mucous membranes. PSYCH: Normal mood, normal affect. SKIN: Warm, dry. No rash, lesions, ulcerations noted. Normal skin turgor. - INFECTION CONTROL TRAVEL OUTSIDE OF THE [place] IN LAST 30 DAYS: No Course - Re-evaluation Re-evalutation: 04/12/19 Campos lamp exam and slit-lamp exam show the patient has a corneal abrasion at the 3:00 hour of the cornea. Negative Lita sign. I do not suspect patient has a globe rupture. Patient will be started on Polytrim eyedrops and Acular eyedrops. She will follow-up with ophthalmology if needed. Follow-up precautions were given. Verbal discharge instructions were given to the patient. They verbalized understanding. They are stable for discharge. - Vital Signs Vital signs: Temp Pulse Resp BP Pulse Ox 98.9 F 123 H 18 139/102 H 95 04/12/19 13:18 04/12/19 13:18 04/12/19 13:18 04/12/19 13:18 04/12/19 13:18 Discharge - Discharge Clinical Impression: Corneal abrasion Qualifiers: Encounter type: initial encounter Laterality: left Qualified Code(s): S05.02XA - Injury of conjunctiva and corneal abrasion without foreign body, left eye, initial encounter Conjunctivitis Qualifiers: Conjunctivitis type: unspecified Laterality: left Qualified Code(s): H10.9 - Unspecified conjunctivitis Condition: Stable Disposition: HOME, SELF-CARE Instructions: Corneal Abrasion ([facility]) Additional Instructions: You were seen today in the emergency department for left eye pain. You have a corneal abrasion. Please apply antibiotic eyedrops 4 times a day for 7 days. You are also being prescribed Acular eyedrops. Take as directed. Please follow-up with ophthalmology if your pain does not get better. Prescriptions: Ketorolac Tromethamine [Acular] 1 drop OS TIDP PRN #5 ml PRN Reason: Referrals: LIZET HELM MD [ACTIVE STAFF] - Follow up in 1 week
[2019-04-12] MEDS ORDERED: POLYMYXIN B SULFATE/TMP OPH SOLN (10 ML/ER DISP) OS PRN (14:31)
[2019-04-12 14:58] VITALS: BP 135/96
== END 2019-04-12 15:09 | disposition home or self-care (01) ==
LOC: ER 13:17
DX: S05.02XA Injury of conjunctiva and corneal abrasion without foreign body, left eye, initial encounter (principal); X58.XXXA Exposure to other specified factors, initial encounter; H10.9 Unspecified conjunctivitis; J45.909 Unspecified asthma, uncomplicated; E10.9 Type 1 diabetes mellitus without complications; I25.10 Atherosclerotic heart disease of native coronary artery without angina pectoris; I10 Essential (primary) hypertension
CPT/HCPCS: 99283; J3490 ×2

== ENCOUNTER 2020-10-24 02:07 | Emergency (ER) | payer MEDICARE ==
[2020-10-24 03:11] LABS: ABSOLUTE BASOPHILS # (AUTO) 0.1 10^3/uL (0.0-0.2); ABSOLUTE EOSINOPHILS # (AUTO) 0.1 10^3/uL (0.0-0.6); ABSOLUTE LYMPHOCYTES (AUTO) 2.3 10^3/uL (0.5-4.7); ABSOLUTE MONOCYTES (AUTO) 0.5 10^3/uL (0.1-1.4); ABSOLUTE NEUT (AUTO) 6.2 10^3/uL (1.7-8.2); BASOPHILS % (AUTO) 1.2 % (0-2); EOSINOPHILS % (AUTO) 0.8 % (0-6); HEMATOCRIT 41.6 % (36.0-47.0); HEMOGLOBIN 13.6 g/dL (12.0-15.5); MEAN CORPUSCULAR HEMOGLOBIN 27.7 pg (27.0-33.4); MEAN CORPUSCULAR HGB CONC 32.7 g/dL (32.0-36.0); MEAN CORPUSCULAR VOLUME 85 fl (80-97); MONOCYTES % (AUTO) 5.5 % (3-13); PLATELET COUNT 249 10^3/uL (150-450); RED BLOOD COUNT 4.91 10^6/uL (3.72-5.28); RED CELL DISTRIBUTION WIDTH 13.7 % (11.5-14.0); SEGMENTED NEUTROPHILS % (AUTO) 67.5 % (42-78); TOTAL CELLS COUNTED % (AUTO) 100 %; WHITE BLOOD COUNT 9.2 10^3/uL (4.0-10.5)
[2020-10-24 03:34] LABS: ALBUMIN 4.6 g/dL (3.5-5.0); ALKALINE PHOSPHATASE 104 U/L (38-126); ANION GAP 15 (5-19); ASPARTATE AMINO TRANSFERASE 20 U/L (14-36); BILIRUBIN,DIRECT 0.3 mg/dL (0.0-0.4); BILIRUBIN,TOTAL 0.3 mg/dL (0.2-1.3); BLOOD UREA NITROGEN 18 mg/dL (7-20); CALCIUM 10.4 mg/dL (8.4-10.2); CARBON DIOXIDE 25 mmol/L (22-30); CHLORIDE 100 mmol/L (98-107); POTASSIUM 4.2 mmol/L (3.6-5.0); TOTAL PROTEIN 7.7 g/dL (6.3-8.2)
[2020-10-24 03:37] LABS: ALCOHOL < 10 mg/dL (NONE DETECTED)
[2020-10-24 03:47] LABS: GLUCOSE 535 mg/dL (75-110)
[2020-10-24] MEDS ORDERED: NORMAL SALINE 1000 ML 1,000 ML IV ONE ×2 (04:00→07:12)
[2020-10-24] MEDS ORDERED: INSULIN REG, HUMAN 100 UNIT/ML 3 ML VIAL (PYX) SUBCUT ONE ×2 (04:02→05:14)
--- NOTE | 2020-10-24 04:07 | ER Document Report ---
ED Fall - General Chief Complaint: Weakness Stated Complaint: HIGH BLOOD PRESSURE, HEART PALPATATIONS Time Seen by Provider: 10/24/20 03:34 Primary Care Provider: YOVANNY LUDWIG FNP [Primary Care Provider] - Follow up tomorrow Information source: Patient, Parent Notes: Patient presents after a fall at home this evening. Patient has a history of 5 previous strokes and has weaknesses to the bilateral sides although does ambulate with the use of a walker. Patient frequently will not use her walker and attempts to ambulate without her walker and will fall. Mother states that patient fell this evening and when she checked her blood pressure the blood pressure reading was elevated. Patient upon presentation to the ER had a more normalized blood pressure. Mother states that she does plan to get a new monitor. Patient presently denies any headache, chest pain, lightheadedness or dizziness. Patient denies any new deficits at this time. Patient elevated blood sugar and states that she may have gotten confused and did not take her Lantus. Patient states that she used to have a continuous blood sugar monitor although after a recent hospitalization they discarded her supplies. Patient does not have a glucometer at home and has been unable to monitor her blood sugar readings. Patient does admit to not eating a diabetic diet and has been drinking Mountain Dew at home. TRAVEL OUTSIDE OF THE [place] IN LAST 30 DAYS: No - HPI Occurred: Just prior to arrival Where: Home Context: Fell from standing Associated symptoms: None. denies: Seizure Quality of pain: No pain Prehospital interventions: No: C-collar, Backboard - Related data Allergies/Adverse Reactions: No Known Allergies Allergy (Verified 10/15/17 13:59) Home Medications: vimpat, coreg, HCTZ, lyrica, cymbalta, ambien, remron, nudexa. lipitor, lantaus, insiulin, novalog insulin, ventalin, metformin Past Medical History - General Information source: Patient - Social History Smoking Status: Current Every Day Smoker Frequency of alcohol use: None Drug Abuse: None Occupation: none Lives with: Parents Family History: Reviewed & Not Pertinent, Other - Mother had migraines - Past Medical History Cardiac Medical History: Reports: Hx Coronary Artery Disease, Hx Hypercholesterolemia, Hx Hypertension Pulmonary Medical History: Reports: Hx Asthma Neurological Medical History: Reports: Hx Cerebrovascular Accident, Hx Migraine Endocrine Medical History: Reports: Hx Diabetes Mellitus Type 1 Renal/ Medical History: Denies: Hx Peritoneal Dialysis Skin Medical History: Reports Hx Eczema Psychiatric Medical History: Reports: Hx Depression Past Surgical History: Reports: Hx Oral Surgery. Denies: Hx Hysterectomy - Immunizations Immunizations up to date: Yes Hx Diphtheria, Pertussis, Tetanus Vaccination: Yes - 2010 Hx Pneumococcal Vaccination: 10/12/00 Review of Systems - Review of Systems Constitutional: No symptoms reported. denies: Fever EENT: No symptoms reported Cardiovascular: No symptoms reported. denies: Chest pain Respiratory: No symptoms reported Gastrointestinal: No symptoms reported. denies: Abdominal pain, Vomiting Genitourinary: Frequency Female Genitourinary: No symptoms reported Musculoskeletal: No symptoms reported. denies: Back pain Skin: No symptoms reported Hematologic/Lymphatic: No symptoms reported Neurological/Psychological: Weakness - [place] after CVA, no new deficit. denies: Lost consciousness, Headaches Physical Exam - Vital signs Vitals: Temp Pulse Resp BP Pulse Ox 98.1 F 119 H 17 111/62 98 10/24/20 02:24 10/24/20 02:24 10/24/20 02:24 10/24/20 02:24 10/24/20 02:24 - General General appearance: Appears well, Alert In distress: None - HEENT Head: Normocephalic, Atraumatic Eyes: Normal Conjunctiva: Normal Nasal: Normal Mouth/Lips: Normal Mucous membranes: Normal Neck: Normal, Supple - Respiratory Respiratory status: No respiratory distress Chest status: Nontender Breath sounds: Normal. No: Rales, Rhonchi, Stridor, Wheezing Chest palpation: Normal - Cardiovascular Rhythm: Tachycardia Heart sounds: S1 appreciated, S2 appreciated - Abdominal Inspection: Normal Distension: No distension Bowel sounds: Normal Tenderness: Nontender Organomegaly: No organomegaly - Back Back: Normal, Nontender. No: CVA tenderness, Vertebra tenderness - Extremities General upper extremity: Normal inspection General lower extremity: Normal inspection Notes: No appreciable deficit when comparing strength of bilateral upper and lower extremities, patient able to hold extremities off of stretcher against gravity - Neurological Neuro grossly intact: Yes Cognition: Normal [place] Coma Scale Eye Opening: Spontaneous [place] Coma Scale Verbal: Oriented Mikaela Coma Scale Motor: Obeys Commands Mikaela Coma Scale Total: 15 - Psychological Associated symptoms: Normal affect, Normal mood - Skin Skin Temperature: Warm Skin Moisture: Dry Skin Color: Normal Course - Re-evaluation Re-evalutation: 10/24/20 07:24 Patient updated regarding diagnostic test results. Patient with hyperglycemia without any concerns about acidosis. Patient without any new focal neurologic deficits. CT head without any acute findings. Patient with nitrite positive urinalysis, urine will be cultured and patient started on antibiotics. Patient encouraged to get a glucometer and monitor her blood sugars and to follow-up with her primary doctor for a recheck of her blood sugars. Mother at bedside states that she will help patient keep track of her medications so that she is compliant with her medicines as well as her diet. Patient encouraged to use walker when ambulating to prevent falls. - Vital Signs Vital signs: Temp Pulse Resp BP Pulse Ox 97.7 F 114 H 15 132/74 H 99 10/24/20 09:02 10/24/20 09:02 10/24/20 09:02 10/24/20 09:02 10/24/20 09:02 - Laboratory Results Result Diagrams: 10/24/20 02:52 10/24/20 02:52 Laboratory Results Interpreted: 10/24/20 10/24/20 10/24/20 02:52 05:13 06:40 Glucose 535 H* POC Glucose 398 H Calcium 10.4 H Urine Glucose (UA) >=500 H Urine Ketones 20 H Urine Nitrite POSITIVE H Ur Leukocyte Esterase TRACE H Urine Ascorbic Acid 20 H 10/24/20 09:23 Labs- All tests 24 hr 10/24/20 10/24/20 10/24/20 02:52 02:52 02:52 WBC 9.2 RBC 4.91 Hgb 13.6 Hct 41.6 MCV 85 MCH 27.7 MCHC 32.7 RDW 13.7 Plt Count 249 Lymph % (Auto) 25.0 [place] % (Auto) 5.5 Eos % (Auto) 0.8 Baso % (Auto) 1.2 Absolute Neuts (auto) 6.2 Absolute Lymphs (auto) 2.3 Absolute Monos (auto) 0.5 Absolute Eos (auto) 0.1 Absolute Basos (auto) 0.1 Seg Neutrophils % 67.5 Sodium 140.0 Potassium 4.2 Chloride 100 Carbon Dioxide 25 Anion Gap 15 BUN 18 Creatinine 0.71 Est GFR ( Amer) > 60 Est GFR (MDRD) Non-Af > 60 Glucose 535 H* POC Glucose Calcium 10.4 H Magnesium 2.0 Total Bilirubin 0.3 Direct Bilirubin 0.3 Neonat Total Bilirubin Not Reportable Neonat Direct Bilirubin Not Reportable Neonat Indirect Bili Not Reportable AST 20 ALT 28 Alkaline Phosphatase 104 Total Protein 7.7 Albumin 4.6 Serum HCG, Qual NEGATIVE Urine Color Urine Appearance Urine pH Ur Specific [place] Urine Protein Urine Glucose (UA) Urine Ketones Urine Blood Urine Nitrite Urine Bilirubin Urine Urobilinogen Ur Leukocyte Esterase Urine WBC (Auto) Urine RBC (Auto) Urine Bacteria (Auto) Squamous Epi Cells Auto Urine Mucus (Auto) Urine Ascorbic Acid Urine Opiates Screen Urine Methadone Screen Ur Barbiturates Screen Ur Phencyclidine Scrn Ur Amphetamines Screen U Benzodiazepines Scrn Urine Cocaine Screen U Marijuana (THC) Screen Serum Alcohol < 10 10/24/20 10/24/20 10/24/20 05:13 06:40 06:40 WBC RBC Hgb Hct MCV MCH MCHC RDW Plt Count Lymph % (Auto) [place] % (Auto) Eos % (Auto) Baso % (Auto) Absolute Neuts (auto) Absolute Lymphs (auto) Absolute Monos (auto) Absolute Eos (auto) Absolute Basos (auto) Seg Neutrophils % Sodium Potassium Chloride Carbon Dioxide Anion Gap BUN Creatinine Est GFR ( Amer) Est GFR (MDRD) Non-Af Glucose POC Glucose 398 H Calcium Magnesium Total Bilirubin Direct Bilirubin Neonat Total Bilirubin Neonat Direct Bilirubin Neonat Indirect Bili AST ALT Alkaline Phosphatase Total Protein Albumin Serum HCG, Qual Urine Color YELLOW Urine Appearance SLIGHTLY-CLOUDY Urine pH 6.0 Ur Specific [place] 1.030 Urine Protein NEGATIVE Urine Glucose (UA) >=500 H Urine Ketones 20 H Urine Blood NEGATIVE Urine Nitrite POSITIVE H Urine Bilirubin NEGATIVE Urine Urobilinogen NEGATIVE Ur Leukocyte Esterase TRACE H Urine WBC (Auto) 15 Urine RBC (Auto) 1 Urine Bacteria (Auto) TRACE Squamous Epi Cells Auto <1 Urine Mucus (Auto) RARE Urine Ascorbic Acid 20 H Urine Opiates Screen NEGATIVE Urine Methadone Screen NEGATIVE Ur Barbiturates Screen NEGATIVE Ur Phencyclidine Scrn NEGATIVE Ur Amphetamines Screen NEGATIVE U Benzodiazepines Scrn NEGATIVE Urine Cocaine Screen NEGATIVE U Marijuana (THC) Screen NEGATIVE Serum Alcohol Critical Laboratory Results Reviewed: No Critical Results - Radiology Results Critical Radiology Results Reviewed: No Critical Results - EKG Interpretation by Me EKG shows normal: Sinus rhythm Rate: Tachycardia When compared to previous EKG there are: No significant change Additional EKG results interpreted by me: 10/24/20 09:23 Sinus tachycardia with a rate of 111, QTc 457, no acute ischemic changes Discharge - Discharge Clinical Impression: Hyperglycemia Hemiparesis Qualifiers: Hemiparesis etiology: late effect of cerebrovascular disease Cerebrovascular disease type: unspecified Hemiparesis laterality: unspecified Qualified Code(s): I69.959 - Hemiplegia and hemiparesis following unspecified cerebrovascular disease affecting unspecified side Fall Qualifiers: Encounter type: initial encounter Qualified Code(s): W19.XXXA - Unspecified fall, initial encounter UTI (urinary tract infection) Qualifiers: Urinary tract infection type: site unspecified Hematuria presence: without hematuria Qualified Code(s): N39.0 - Urinary tract infection, site not specified Condition: Stable Disposition: HOME, SELF-CARE Instructions: Cephalexin ([facility]), Dehydration ([facility]), Hyperglycemia ([facility]), Intravenous (IV) Fluids ([facility]), Urinary Tract Infection ([facility]) Additional Instructions: Return immediately for any new or worsening symptoms Followup with your primary care provider, call tomorrow to make a followup appointment Maintain a diabetic diet and monitor blood sugars. Urine culture is pending, we will call if you need any different treatment. Prescriptions: Blood-Glucose Meter [Blood Glucose Meter] 1 unit MC DAILY PRN #1 unit PRN Reason: Cephalexin Monohydrate [Keflex 500 mg Capsule] 500 mg PO BID 7 Days #14 capsule Referrals: YOVANNY LUDWIG FNP [Primary Care Provider] - Follow up tomorrow
--- NOTE | 2020-10-24 06:02 | RADIOLOGY REPORT (SQ) ---
CT head without contrast on 10/24/2020 at 4:55 AM CLINICAL INDICATION: Frequent falls, history of CVA, per protocol for mechanism of injury TECHNIQUE: Multiple axial images are obtained throughout the head without the administration of contrast. This exam was performed according to our departmental dose-optimization program, which includes automated exposure control, adjustment of the mA and/or kV according to patient size and/or use of iterative reconstruction technique. Total DLP is 1203.4 mGy*cm. COMPARISON: 02/04/2018 FINDINGS: There is low-density in the periventricular white matter consistent with chronic small vessel ischemic changes. There is an old right frontal infarct with some ex vacuo dilatation of the right lateral ventricle. There is also a likely small old left periventricular lacunar infarct. No definite CT evidence of acute infarct is noted. There is no hemorrhage. There are no abnormal extra-axial fluid collections. There is no mass, mass effect or midline shift. No bony abnormality is noted. IMPRESSION: Chronic small vessel ischemic changes with old infarcts with no acute intracranial abnormality.
[2020-10-24 07:05] LABS: APPEARANCE,URINE SLIGHTLY-CLOUDY; BILIRUBIN,URINE NEGATIVE (NEGATIVE); COLOR,URINE YELLOW; GLUCOSE, URINE >=500 mg/dL (NEGATIVE); KETONES,URINE 20 mg/dL (NEGATIVE); LEUKOCYTE ESTERASE,URINE TRACE (NEGATIVE); NITRITE,URINE POSITIVE (NEGATIVE); PROTEIN,URINE NEGATIVE (NEGATIVE); UROBILINOGEN,URINE NEGATIVE mg/dL (<2.0)
[2020-10-24] MEDS ORDERED: CEFTRIAXONE 1 GM/D5W RTU 1 GM/50 ML RTUPB IV ONE (07:12)
[2020-10-24 07:21] LABS: URINE AMPHETAMINES SCREEN NEGATIVE; URINE BARBITURATES SCREEN NEGATIVE; URINE BENZODIAZEPINES SCREEN NEGATIVE; URINE COCAINE SCREEN NEGATIVE; URINE MARIJUANA (THC) SCREEN NEGATIVE; URINE METHADONE SCREEN NEGATIVE; URINE PHENCYCLIDINE SCREEN NEGATIVE
[2020-10-24 09:09] VITALS: BP 132/74
--- NOTE | 2020-10-24 10:25 | EKG REPORT ---
SEVERITY:- ABNORMAL ECG - SINUS TACHYCARDIA PROBABLE LVH WITH SECONDARY REPOL ABNRM : Confirmed by: Kimi Castillo MD 24-Oct-2020 10:25:18
== END 2020-10-24 09:02 | disposition home or self-care (01) ==
LOC: ER 02:07
DX: Z04.3 Encounter for examination and observation following other accident (principal); I69.398 Other sequelae of cerebral infarction; R53.1 Weakness; N39.0 Urinary tract infection, site not specified; R00.0 Tachycardia, unspecified; E10.65 Type 1 diabetes mellitus with hyperglycemia; Z91.11 Patient's noncompliance with dietary regimen; F17.200 Nicotine dependence, unspecified, uncomplicated; I25.10 Atherosclerotic heart disease of native coronary artery without angina pectoris; I10 Essential (primary) hypertension; E78.00 Pure hypercholesterolemia, unspecified; F32.9 Major depressive disorder, single episode, unspecified; Z79.899 Other long term (current) drug therapy; Z79.4 Long term (current) use of insulin
CPT/HCPCS: 93005; 99285; 96361; 96365; 36415; 87086; 82962; 80307 ×2; 83735; 84703; 85025; 87088; 80053; 81001; 70450; 93010; A9270; J7030; J0696; 87186; J1815